=== PATIENT | female | born 1980 | race African-American/Black ===

== ENCOUNTER 2018-09-07 17:55 | Inpatient (IN) | payer SELFPAY ==
[~2018-09-07] VITALS: Ht 165.1 cm; Wt 70.2 kg
[2018-09-07 19:00] LABS: BASOPHILS % (AUTO) 0.5 % (0.0-2.0); EOSINOPHILS % (AUTO) 0 % (1.0-6.0); HEMATOCRIT 29.6 % (36-46); HEMOGLOBIN 8.8 g/dL (12.0-16.0); LYMPHOCYTES # (AUTO) 1.2 K/uL (1.0-4.8); LYMPHOCYTES % (AUTO) 5.9 % (22.0-44.0); MEAN CORPUSCULAR HEMOGLOBIN 18.5 pg (26.0-34.0); MEAN CORPUSCULAR HGB CONC 29.7 G/dL (31.0-37.0); MEAN CORPUSCULAR VOLUME 62 fL (80-100); MONOCYTES # (AUTO) 1.1 K/uL (0.1-1.0); MONOCYTES % (AUTO) 5.5 % (2.0-9.0); NEUTROPHILS # (AUTO) 17.2 K/uL (1.8-7.7); PLATELET COUNT (AUTO) 544 K/uL (150-450); RED BLOOD CELL COUNT(AUTO) 4.75 MIL/uL (4.00-5.20); RED CELL DISTRIBUTION WIDTH 21.9 % (11.5-14.5)
[2018-09-07 19:08] LABS: APPEARANCE,URINE CLOUDY (CLEAR); GLUCOSE, URINE (UA) NEGATIVE (NEGATIVE); KETONES,URINE 40 mg/dL (NEGATIVE); LEUKOCYTE ESTERASE ,URINE MODERATE (NEGATIVE); NITRATE,URINE POSITIVE (NEGATIVE); OCCULT BLOOD,URINE MODERATE (NEGATIVE); PROTEIN,URINE SEE CONFIRM (NEGATIVE)
[2018-09-07 19:10] LABS: ANION GAP 14 mmol/L (8-16); CALCIUM, TOTAL 9.5 mg/dL (8.8-10.5); CARBON DIOXIDE 25 mmol/L (22-29); CHLORIDE 97 mmol/L (98-107); GLOMERULAR FILTR. RATE CALC > 60 mL/min (>60); GLUCOSE,RANDOM 135 mg/dL (70-110); POTASSIUM 3.1 mmol/L (3.5-5.1); SODIUM SERUM 136 mmol/L (136-145); UREA NITROGEN, BLOOD 7 mg/dL (7-18)
[2018-09-07 19:13] LABS: NEUTROPHILS % (AUTO) 88.1 % (40.0-70.0)
[2018-09-07 19:16] LABS: ALANINE AMINOTRANSFERASE 12 U/L (12-78); ALBUMIN 2.8 g/dL (3.4-5.0); ALKALINE PHOSPHATASE 106 U/L (46-116); ASPARTATE AMINOTRANSFERASE 9 U/L (15-37); BILIRUBIN,TOTAL 0.3 mg/dL (0.1-1.0); LIPASE 47 U/L (73-393); TOTAL PROTEIN, SERUM 8.2 g/dL (6.4-8.2)
[2018-09-07 19:29] LABS: BILIRUBIN,URINE PRELIM. POSITIVE (NEGATIVE)
[2018-09-07 20:26] LABS: SULFOSALICYLIC ACID,URINE 3+ (Negative)
[2018-09-07 20:27] LABS: BACTERIA,URINE Many /HPF (None Seen)
[2018-09-07 20:28] LABS: SQUAMOUS EPITHELIAL CELL,UR Many /LPF (None Seen); WBC,URINE 26-50 /HPF (0-5)
[2018-09-07] MEDS ORDERED: CefTRIAXone 1 GM/DEXTROSE 50 ML IV ONE (21:00)
[2018-09-07] MEDS ORDERED: SODIUM CHLORIDE 0.9% 2,000 ML IV ONE (21:00)
[2018-09-07] MEDS ORDERED: POTASSIUM CHLORIDE 20 MEQ ER TABLET PO ONE (21:00)
[2018-09-07] MEDS ORDERED: IOVERSOL 320 MG/ML 100 ML VIAL ONE (21:03)
[2018-09-07] MEDS ORDERED: SODIUM CHLORIDE 0.9% 100 ML ONE (21:03)
[2018-09-07] MEDS ORDERED: KETOROLAC TROMETHAMINE 30 MG/ML VIAL IVP ONE (21:45)
[2018-09-07] MEDS ORDERED: WATER IV ONE (23:00)
[2018-09-07] MEDS ORDERED: ONDANSETRON HCL 4 MG/2 ML VIAL IVP PRN (23:00)
[2018-09-07] MEDS ORDERED: ACETAMINOPHEN 325 MG TABLET PO PRN (23:00)
[2018-09-07] MEDS ORDERED: GENTAMICIN SULFATE IV ONE (23:00)
[2018-09-07] MEDS ORDERED: 0.9% SODIUM CHLORIDE 10 ML SYRINGE IVP PRN (23:00)
[2018-09-07] MEDS ORDERED: DEXTROSE 5% IV ONE (23:00)
[2018-09-07] MEDS ORDERED: *CLINICAL-GENTAMICIN DOSING CLINICAL ONE (23:30)
[2018-09-07] MEDS ORDERED: GENTAMICIN SULFATE 140 MG in DEXTROSE 5%-WATER 50 ML IV ONE (23:30)
[2018-09-08] MEDS ORDERED: CLINDAMYCIN PHOS 150 MG/ML 4 ML VIAL IV SCH
[2018-09-08] MEDS: CLINDAMYCIN 600 MG/D5% WATER 50 ML IV SCH ×3 (00:02→22:23)
[2018-09-08 00:48] VITALS: BP 127/79
[2018-09-08] MEDS ORDERED: PNEUMOCOCCAL VACCINE POLYVALENT 0.5 ML VIAL [PPSV23] IM ONE (03:30)
[2018-09-08 04:15] VITALS: BP 123/68
[2018-09-08] MEDS ORDERED: SODIUM CHLORIDE 0.9% 250 ML IV ONE ×2 (04:22→07:49)
[2018-09-08] MEDS ORDERED: CeFAZolin 2 GM/DEXTROSE 50 ML IV SCH (05:00)
[2018-09-08 05:57] LABS: PROTHROMBIN TIME 10.4 SEC (9.4-11.6)
[2018-09-08 06:14] LABS: ALANINE AMINOTRANSFERASE 9 U/L (12-78); ALKALINE PHOSPHATASE 88 U/L (46-116); ANION GAP 12 mmol/L (8-16); ASPARTATE AMINOTRANSFERASE 9 U/L (15-37); BILIRUBIN,TOTAL 0.2 mg/dL (0.1-1.0); CARBON DIOXIDE 23 mmol/L (22-29); CHLORIDE 102 mmol/L (98-107); CREATININE 0.77 mg/dL (0.60-1.30); GLOMERULAR FILTR. RATE CALC > 60 mL/min (>60); GLUCOSE,RANDOM 92 mg/dL (70-110); POTASSIUM 3.3 mmol/L (3.5-5.1); SODIUM SERUM 137 mmol/L (136-145); TOTAL PROTEIN, SERUM 6.2 g/dL (6.4-8.2); UREA NITROGEN, BLOOD 7 mg/dL (7-18)
[2018-09-08 07:38] VITALS: BP 101/63
[2018-09-08] MEDS ORDERED: GENTAMICIN 120 MG/NACL ISO-OSM 100 ML IV SCH (08:00)
[2018-09-08] MEDS ORDERED: ALBUTEROL SULFATE HFA 90 MCG/PUFF 8 GM INHALER IH PRN (09:45)
[2018-09-08] MEDS: HYDROCODONE/ACETAMINOPHEN 5-325 MG TABLET PO PRN ×2 (10:01→20:39)
[2018-09-08 11:00] VITALS: BP 114/58
[2018-09-08] MEDS ORDERED: IBUPROFEN 800 MG TABLET PO SCH (12:00)
[2018-09-08] MEDS: IBUPROFEN 800 MG TABLET PO PRN ×2 (14:55→23:21)
[2018-09-08 15:57] VITALS: BP 116/59
[2018-09-08] MEDS ORDERED: POTASSIUM CHLORIDE 20 MEQ ER TABLET PO ONE (20:15)
[2018-09-08] MEDS: CeFAZolin 2 GM/DEXTROSE 50 ML IV SCH (20:57)
[2018-09-08 22:04] VITALS: BP 100/58
[2018-09-08] MEDS: GENTAMICIN 120 MG/NACL ISO-OSM 100 ML IV SCH (23:07)
[2018-09-09] VITALS (7 sets, daily range): BP systolic 100–126; BP diastolic 56–72
[2018-09-09] MEDS: CeFAZolin 2 GM/DEXTROSE 50 ML IV SCH ×3 (03:23→22:51)
[2018-09-09] MEDS: HYDROCODONE/ACETAMINOPHEN 5-325 MG TABLET PO PRN ×3 (03:29→18:54)
[2018-09-09] MEDS: CLINDAMYCIN 600 MG/D5% WATER 50 ML IV SCH ×3 (04:42→22:10)
[2018-09-09] MEDS: GENTAMICIN 120 MG/NACL ISO-OSM 100 ML IV SCH ×3 (05:48→23:26)
[2018-09-09 06:34] LABS: BASOPHILS % (AUTO) 0.3 % (0.0-2.0); EOSINOPHILS % (AUTO) 0.8 % (1.0-6.0); HEMATOCRIT 23.9 % (36-46); LYMPHOCYTES # (AUTO) 0.9 K/uL (1.0-4.8); LYMPHOCYTES % (AUTO) 7.1 % (22.0-44.0); MEAN CORPUSCULAR HEMOGLOBIN 18.4 pg (26.0-34.0); MEAN CORPUSCULAR HGB CONC 29.4 G/dL (31.0-37.0); MEAN CORPUSCULAR VOLUME 63 fL (80-100); MONOCYTES # (AUTO) 0.9 K/uL (0.1-1.0); NEUTROPHILS # (AUTO) 11.2 K/uL (1.8-7.7); NEUTROPHILS % (AUTO) 84.8 % (40.0-70.0); PLATELET COUNT (AUTO) 424 K/uL (150-450); RED BLOOD CELL COUNT(AUTO) 3.82 MIL/uL (4.00-5.20); RED CELL DISTRIBUTION WIDTH 22.1 % (11.5-14.5)
[2018-09-09 09:22] LABS: PLATELET MORPHOLOGY COMMENT LARGE PLTS PRESENT
[2018-09-09] MEDS: IBUPROFEN 800 MG TABLET PO PRN ×2 (11:19→22:55)
[2018-09-09] MEDS ORDERED: SODIUM CHLORIDE 0.9% 500 ML IV ONE (22:12)
[2018-09-10] MEDS: HYDROCODONE/ACETAMINOPHEN 5-325 MG TABLET PO PRN ×2 (04:54→21:12)
[2018-09-10] MEDS: CeFAZolin 2 GM/DEXTROSE 50 ML IV SCH ×3 (04:55→19:50)
[2018-09-10 05:12] VITALS: BP 122/69
[2018-09-10] MEDS: CLINDAMYCIN 600 MG/D5% WATER 50 ML IV SCH ×3 (05:56→21:13)
[2018-09-10] MEDS: GENTAMICIN 120 MG/NACL ISO-OSM 100 ML IV SCH ×3 (06:34→21:56)
[2018-09-10 06:39] LABS: BASOPHILS % (AUTO) 0.3 % (0.0-2.0); EOSINOPHILS % (AUTO) 0.8 % (1.0-6.0); HEMATOCRIT 24.9 % (36-46); HEMOGLOBIN 7.4 g/dL (12.0-16.0); LYMPHOCYTES # (AUTO) 1.2 K/uL (1.0-4.8); LYMPHOCYTES % (AUTO) 9.2 % (22.0-44.0); MEAN CORPUSCULAR HEMOGLOBIN 18.6 pg (26.0-34.0); MEAN CORPUSCULAR HGB CONC 29.8 G/dL (31.0-37.0); MEAN CORPUSCULAR VOLUME 63 fL (80-100); MONOCYTES # (AUTO) 0.9 K/uL (0.1-1.0); NEUTROPHILS # (AUTO) 11.2 K/uL (1.8-7.7); NEUTROPHILS % (AUTO) 82.7 % (40.0-70.0); PLATELET COUNT (AUTO) 477 K/uL (150-450); RED BLOOD CELL COUNT(AUTO) 3.98 MIL/uL (4.00-5.20)
[2018-09-10 07:08] LABS: ANION GAP 11 mmol/L (8-16); CALCIUM, TOTAL 8.8 mg/dL (8.8-10.5); CARBON DIOXIDE 27 mmol/L (22-29); CHLORIDE 100 mmol/L (98-107); CREATININE 0.93 mg/dL (0.60-1.30); GENTAMICIN,RANDOM 1.5 mcg/mL (4.0-10.0); GLOMERULAR FILTR. RATE CALC > 60 mL/min (>60); GLUCOSE,RANDOM 108 mg/dL (70-110); SODIUM SERUM 138 mmol/L (136-145); UREA NITROGEN, BLOOD 6 mg/dL (7-18)
[2018-09-10 07:50] LABS: POTASSIUM 2.9 mmol/L (3.5-5.1)
[2018-09-10 08:22] VITALS: BP 99/56
[2018-09-10 08:23] LABS: ERYTHROCYTE SEDIMENTATION RATE 102 MM/HR (0-20)
[2018-09-10] MEDS ORDERED: POTASSIUM CHLORIDE 20 MEQ ER TABLET PO PRN (08:30)
[2018-09-10] MEDS: POTASSIUM CHL 10 MEQ/WATER 50 ML IV PRN ×2 (08:47→09:33)
[2018-09-10] MEDS: IBUPROFEN 800 MG TABLET PO PRN ×2 (08:58→16:42)
[2018-09-10 12:02] VITALS: BP 121/76
[2018-09-10 15:59] VITALS: BP 124/54
[2018-09-10 19:30] VITALS: BP 148/58
[2018-09-10 23:29] VITALS: BP 106/66
[2018-09-11] MEDS: IBUPROFEN 800 MG TABLET PO PRN (02:35)
[2018-09-11 04:00] VITALS: BP 137/86
[2018-09-11] MEDS: CeFAZolin 2 GM/DEXTROSE 50 ML IV SCH ×3 (04:18→20:21)
[2018-09-11] MEDS: CLINDAMYCIN 600 MG/D5% WATER 50 ML IV SCH ×3 (05:07→20:54)
[2018-09-11] MEDS: GENTAMICIN 120 MG/NACL ISO-OSM 100 ML IV SCH ×3 (06:09→21:50)
[2018-09-11 08:48] VITALS: BP 137/51
[2018-09-11 09:12] LABS: ANION GAP 10 mmol/L (8-16); CALCIUM, TOTAL 9.2 mg/dL (8.8-10.5); CARBON DIOXIDE 27 mmol/L (22-29); CHLORIDE 100 mmol/L (98-107); CREATININE 0.79 mg/dL (0.60-1.30); GLOMERULAR FILTR. RATE CALC > 60 mL/min (>60); GLUCOSE,RANDOM 121 mg/dL (70-110); POTASSIUM 3.8 mmol/L (3.5-5.1); SODIUM SERUM 137 mmol/L (136-145); UREA NITROGEN, BLOOD 4 mg/dL (7-18)
[2018-09-11] MEDS: HYDROCODONE/ACETAMINOPHEN 5-325 MG TABLET PO PRN ×3 (10:06→21:53)
[2018-09-11] MEDS ORDERED: ZOLPIDEM TARTRATE 5 MG TABLET PO PRN (10:15)
[2018-09-11 16:28] VITALS: BP 120/69
[2018-09-11 19:40] VITALS: BP 134/89
[2018-09-11 23:33] VITALS: BP 111/70
[2018-09-12] MEDS: CeFAZolin 2 GM/DEXTROSE 50 ML IV SCH ×2 (04:27→12:00)
[2018-09-12] MEDS: HYDROCODONE/ACETAMINOPHEN 5-325 MG TABLET PO PRN ×2 (04:36→12:08)
[2018-09-12 04:57] VITALS: BP 123/77
[2018-09-12] MEDS: GENTAMICIN 120 MG/NACL ISO-OSM 100 ML IV SCH (05:43)
[2018-09-12] MEDS: CLINDAMYCIN 600 MG/D5% WATER 50 ML IV SCH ×2 (05:43→13:00)
[2018-09-12 07:35] VITALS: BP 122/74
[2018-09-12] MEDS ORDERED: DOXY100C PO (11:41)
[2018-09-12] MEDS ORDERED: IBUP-2071 PO (11:41)
[2018-09-12] MEDS ORDERED: ZOLP5 PO (11:42)
[2018-09-12] MEDS ORDERED: DSS100 PO (11:43)
[2018-09-12] MEDS ORDERED: FERR-89 PO (11:43)
[2018-09-12] MEDS ORDERED: SOD FERRIC GLUC COMPLX/SUCROSE 125 MG in SODIUM CHLORIDE 0.9% 100 ML IV ONE (11:45)
== END 2018-09-12 16:30 | disposition home or self-care (01) | DRG 758 ==
LOC: EMS 17:58 → 5S 22:30 → 6N 09-09 18:00 → 5S 09-10 16:17 → 6N 09-10 16:18
PROVIDERS: ADMIT Obstetrics & Gynecology; ATTEND Obstetrics & Gynecology
DX: N70.93 Salpingitis and oophoritis, unspecified (principal); N39.0 Urinary tract infection, site not specified; F12.90 Cannabis use, unspecified, uncomplicated; D64.9 Anemia, unspecified; B96.20 Unspecified Escherichia coli [E. coli] as the cause of diseases classified elsewhere; M54.5 Low back pain; F17.210 Nicotine dependence, cigarettes, uncomplicated; Z82.5 Family history of asthma and other chronic lower respiratory diseases; Z28.21 Immunization not carried out because of patient refusal; Z88.5 Allergy status to narcotic agent
CPT/HCPCS: 74176; 74177; 76856; 83605; 84132; 85651; 87040; 87086; 87491; 87591; G0378; J0690; J0696; J1580; J1885; J2916; J3480; J3490; J7030; J7040; J7050; J7060

== ENCOUNTER 2023-02-24 18:15 | Emergency (ER) | payer MEDICAID, OTHER ==
[~2023-02-24] VITALS: Ht 170.2 cm; Wt 72.7 kg
[~2023-02-24 18:15] MED LIST: DOXY100C PO; DSS100 PO; FERR325T27 PO; IBUP-1493 PO; ZOLP-280 PO
[2023-02-24 18:18] VITALS: BP 139/87; PULSE 95; RESP 16; TEMP 98.2
[2023-02-24] MEDS ORDERED: BACLOFEN 10 MG TABLET PO ONE (19:45)
[2023-02-24] MEDS ORDERED: LIDOCAINE 5% TRANSDERMAL PATCH TD ONE (19:45)
[2023-02-24] MEDS ORDERED: IBUPROFEN 600 MG TABLET PO ONE (19:45)
[2023-02-24] MEDS ORDERED: BACL10TA PO (22:12)
[2023-02-24] MEDS ORDERED: IBUP-1492 PO (22:13)
== END 2023-02-24 22:21 | disposition home or self-care (01) ==
LOC: EMS 18:19
DX: M25.561 Pain in right knee (principal); F17.210 Nicotine dependence, cigarettes, uncomplicated; F12.90 Cannabis use, unspecified, uncomplicated; Z88.5 Allergy status to narcotic agent
CPT/HCPCS: 70450; 71045; 72100; 99284

== ENCOUNTER 2024-07-04 15:30 | Emergency (ER) | payer OTHER ==
[~2024-07-04] VITALS: Ht 175.3 cm; Wt 78.2 kg
[~2024-07-04 15:30] MED LIST changes: +BACL10TA PO; +IBUP-1492 PO
[2024-07-04 15:41] VITALS: BP 139/99; PULSE 105; RESP 16; TEMP 98.1; O2SAT 97
[2024-07-04 16:35] LABS: COVID AG,FIA SOURCE NASAL SWAB
[2024-07-04] MEDS: OXYMETAZOLINE HCL 0.05% 15 ML NASAL SPRAY NASAL ONE (16:38)
[2024-07-04 16:57] LABS: INFLUENZA TYPE A NEGATIVE FOR TYPE A (NEGATIVE); INFLUENZA TYPE B NEGATIVE FOR TYPE B (NEGATIVE); SARS-COV2 (COVID) ANTIGEN,FIA Negative (Negative)
[2024-07-04] MEDS ORDERED: AMOX-457 PO (17:03)
[2024-07-04] MEDS ORDERED: FLUT16SP NASAL (17:03)
== END 2024-07-04 17:19 | disposition home or self-care (01) ==
LOC: EMS 15:30
DX: J01.90 Acute sinusitis, unspecified (principal); F12.90 Cannabis use, unspecified, uncomplicated; F17.210 Nicotine dependence, cigarettes, uncomplicated; Z88.5 Allergy status to narcotic agent; Z20.822 Contact with and (suspected) exposure to COVID-19
CPT/HCPCS: 87804; 99283